=== PATIENT | female | born 1990 | race African-American/Black ===

== ENCOUNTER 2018-08-17 13:48 | Emergency (ER) | payer OTHER ==
--- NOTE | 2018-08-17 15:30 | ER ---
Nurse's Notes [facility] Name: Edwige Patrick Age: 28 yrs Sex: Female : 1990 Arrival Date: 08/17/2018 Time: 13:52 Bed Treatment Private MD: Diagnosis: Acute upper respiratory infection, unspecified Presentation: 08/17 13:53 Presenting complaint: Patient states: sore throat, cough, brown sputum for 3 days. sv Transition of care: patient was not received from another setting of care. Onset of symptoms was August 14, 2018. Care prior to arrival: None. 13:53 Method Of Arrival: Ambulatory sv 13:53 Acuity: CLIFFORD 3 sv 15:02 Risk Assessment: Do you want to hurt yourself or someone else? Patient reports no rv desire to harm self or others. Initial Sepsis Screen: Does the patient meet any 2 criteria? No. Patient's initial sepsis screen is negative. Does the patient have a suspected source of infection? No. Patient's initial sepsis screen is negative. Triage Assessment: 13:53 General: Appears in no apparent distress. uncomfortable, obese, Behavior is calm, sv cooperative. Pain: Complains of pain in throat Pain currently is 8 out of 10 on a pain scale. EENT: Oral mucosa is moist. Throat is clear is reddened. Respiratory: Respiratory effort is even, unlabored, Respiratory pattern is regular, symmetrical. Historical: - Allergies: 13:55 No Known Allergies; sv - Home Meds: 13:55 None [Active]; sv - PMHx: 13:55 Epilepsy; sv - PSHx: 13:55 ; sv - Immunization history:: Flu vaccine is not up to date. - Social history:: Smoking status: Patient/guardian denies using tobacco. - Ebola Screening: : No symptoms or risks identified at this time. Screenin:02 Abuse screen: Denies threats or abuse. Denies injuries from another. Nutritional rv screening: No deficits noted. Tuberculosis screening: No symptoms or risk factors identified. Fall Risk None identified. Assessment: 15:00 General: Appears in no apparent distress. comfortable, Behavior is calm, cooperative. rv Pain: Complains of pain in THROAT. Neuro: Level of Consciousness is awake, alert, obeys commands, Oriented to person, place, time, situation. Cardiovascular: Capillary refill < 3 seconds. Respiratory: Airway is patent Breath sounds are clear bilaterally. Respiratory: Respiratory effort is even. GI: No signs and/or symptoms were reported involving the gastrointestinal system. : No signs and/or symptoms were reported regarding the genitourinary system. EENT: Throat is reddened. Derm: Skin is intact. Musculoskeletal: No signs and/or symptoms reported regarding the musculoskeletal system. Vital Signs: 13:55 BP 121 / 93; Pulse 89; Resp 18; Temp 98.9; Pulse Ox 100% ; Weight 83.91 kg; Height 5 sv ft. 0 in. (152.40 cm); Pain 8/10; 13:55 Body Mass Index 36.13 (83.91 kg, 152.40 cm) sv ED Course: 13:52 Patient arrived in ED. mr 13:54 Triage completed. sv 13:55 Arm band placed on. sv 15:02 Patient has correct armband on for positive identification. Call light in reach. NIBP rv on. 15:10 Cary Gusman FNP-C is PHCP. snw 15:10 Wilmer Art MD is Attending Physician. snw 15:36 No provider procedures requiring assistance completed. Patient did not have IV access rv during this emergency room visit. Administered Medications: No medications were administered Outcome: 15:29 Discharge ordered by . snw 15:36 Discharged to home ambulatory. rv 15:36 Condition: good 15:36 Discharge instructions given to patient, Instructed on discharge instructions, follow up and referral plans. medication usage, Demonstrated understanding of instructions, follow-up care, medications, Prescriptions given X 1. 15:36 Patient left the ED. rv Signatures: Breana Durant RN RN Cary Gusman FNP-C FNP-Pamela Ina Owen Singh Toure RN RN rv
--- NOTE | 2018-08-17 15:30 | EDPHYS ---
Physician Documentation [facility] Name: Edwige Patrick Age: 28 yrs Sex: Female : 1990 Arrival Date: 08/17/2018 Time: 13:52 Bed Treatment Private MD: ED Physician Wilmer Art HPI: 08/17 15:30 This 28 yrs old Black Female presents to ER via Ambulatory with complaints of Sore snw Throat, Cough. 15:30 The patient presents with sore throat. The patient describes throat pain as raw, snw scratchy. Onset: The symptoms/episode began/occurred suddenly, 3 day(s) ago, and became persistent. Severity of symptoms: At their worst the symptoms were moderate. Associated signs and symptoms: The patient has no apparent associated signs or symptoms. It is unknown whether or not the patient has had similar symptoms in the past. It is unknown whether or not the patient has recently seen a physician. Historical: - Allergies: 13:55 No Known Allergies; sv - Home Meds: 13:55 None [Active]; sv - PMHx: 13:55 Epilepsy; sv - PSHx: 13:55 ; sv - Immunization history:: Flu vaccine is not up to date. - Social history:: Smoking status: Patient/guardian denies using tobacco. - Ebola Screening: : No symptoms or risks identified at this time. ROS: 15:34 Constitutional: Negative for fever, chills, and weight loss, Eyes: Negative for injury, snw pain, redness, and discharge, ENT: Negative for injury and discharge, +sore throat Neck: Negative for injury, pain, and swelling, Cardiovascular: Negative for chest pain, palpitations, and edema, Abdomen/GI: Negative for abdominal pain, nausea, vomiting, diarrhea, and constipation, Back: Negative for injury and pain, : Negative for injury, bleeding, discharge, and swelling, MS/Extremity: Negative for injury and deformity, Skin: Negative for injury, rash, and discoloration, Neuro: Negative for headache, weakness, numbness, tingling, and seizure. 15:34 Respiratory: Positive for cough, with rust-colored sputum. Exam: 15:29 Constitutional: This is a well developed, well nourished patient who is awake, alert, snw and in no acute distress. Head/Face: Normocephalic, atraumatic. Eyes: Pupils equal round and reactive to light, extra-ocular motions intact. Lids and lashes normal. Conjunctiva and sclera are non-icteric and not injected. Cornea within normal limits. Periorbital areas with no swelling, redness, or edema. Neck: Trachea midline, no thyromegaly or masses palpated, and no cervical lymphadenopathy. Supple, full range of motion without nuchal rigidity, or vertebral point tenderness. No Meningismus. Chest/axilla: Normal chest wall appearance and motion. Nontender with no deformity. No lesions are appreciated. Cardiovascular: Regular rate and rhythm with a normal S1 and S2. No gallops, murmurs, or rubs. Normal PMI, no JVD. No pulse deficits. Abdomen/GI: Soft, non-tender, with normal bowel sounds. No distension or tympany. No guarding or rebound. No evidence of tenderness throughout. Back: No spinal tenderness. No costovertebral tenderness. Full range of motion. Skin: Warm, dry with normal turgor. Normal color with no rashes, no lesions, and no evidence of cellulitis. MS/ Extremity: Pulses equal, no cyanosis. Neurovascular intact. Full, normal range of motion. Neuro: Awake and alert, GCS 15, oriented to person, place, time, and situation. Cranial nerves II-XII grossly intact. Motor strength 5/5 in all extremities. Sensory grossly intact. Cerebellar exam normal. Normal gait. Psych: Awake, alert, with orientation to person, place and time. Behavior, mood, and affect are within normal limits. 15:29 ENT: External ear(s): are unremarkable, Ear canal(s): are normal, TM's: are normal, Nose: is normal, Mouth: is normal, Posterior pharynx: erythema, that is moderate, Voice: is normal. 15:29 Respiratory: the patient does not display signs of respiratory distress, Respirations: normal, Breath sounds: are clear throughout, + dry cough. Vital Signs: 13:55 BP 121 / 93; Pulse 89; Resp 18; Temp 98.9; Pulse Ox 100% ; Weight 83.91 kg; Height 5 sv ft. 0 in. (152.40 cm); Pain 8/10; 13:55 Body Mass Index 36.13 (83.91 kg, 152.40 cm) sv MDM: 15:10 Patient medically screened. snw 15:30 Data reviewed: vital signs, nurses notes. Data interpreted: Pulse oximetry: on room air snw is 100 %. Interpretation: normal. Counseling: I had a detailed discussion with the patient and/or guardian regarding: the historical points, exam findings, and any diagnostic results supporting the discharge/admit diagnosis, the presence of at least one elevated blood pressure reading (>120/80) during this emergency department visit, the need for outpatient follow up, to return to the emergency department if symptoms worsen or persist or if there are any questions or concerns that arise at home. Special discussion: Based on the history and exam findings, there is no indication for further emergent testing or inpatient evaluation. I discussed with the patient/guardian the need to see the primary care provider for further evaluation of the symptoms. 08/17 13:55 Order name: Strep; Complete Time: 15:00 sv 08/17 14:11 Order name: Throat Culture EDMS Administered Medications: No medications were administered Disposition: 08/17/18 15:29 Discharged to Home. Impression: Acute upper respiratory infection, unspecified. - Condition is Stable. - Discharge Instructions: Hypertension, Viral Respiratory Infection, Cool Mist Vaporizer, Cough, Adult, Rehydration, Adult. - Prescriptions for Prednisone 20 mg Oral Tablet - take 2 tablet by ORAL route once daily for 5 days; 10 tablet. - Medication Reconciliation Form, Thank You Letter, Antibiotic Education, Prescription Opioid Use form. - Follow up: Private Physician; When: 2 - 3 days; Reason: Recheck today's complaints, Continuance of care, Re-evaluation by your physician. Follow up: Emergency Department; When: As needed; Reason: Worsening of condition. Addendum: 08/19/2018 19:08 Co-signature as Attending Physician, Wilmer Art MD. g s Signatures: Dispatcher [employer] Breana Conway RN RN Cary Fournier, FORM SETTER STEEL FORMS-C FORM SETTER STEEL FORMS-Reginaldw Wilmer Art MD MD gs Vicente, Ronaldo, RN RN rv Corrections: (The following items were deleted from the chart) 08/17 15:36 15:29 08/17/2018 15:29 Discharged to Home. Impression: Acute upper respiratory rv infection, unspecified. Condition is Stable. Forms are Medication Reconciliation Form, Thank You Letter, Antibiotic Education, Prescription Opioid Use. Follow up: Private Physician; When: 2 - 3 days; Reason: Recheck today's complaints, Continuance of care, Re-evaluation by your physician. Follow up: Emergency Department; When: As needed; Reason: Worsening of condition. miguel
== END 2018-08-17 15:36 | disposition home or self-care (01) ==
LOC: ER 13:48
DX: J06.9 Acute upper respiratory infection, unspecified (principal)
CPT/HCPCS: 87070; 87081; 99282

== ENCOUNTER 2018-10-09 13:48 | Emergency (ER) | payer OTHER ==
--- NOTE | 2018-10-09 14:41 | ER ---
Nurse's Notes [facility] Name: Edwige Patrick Age: 28 yrs Sex: Female : 1990 Arrival Date: 10/09/2018 Time: 13:52 Bed 14 Private MD: Diagnosis: Cutaneous abscess of groin Presentation: 10/09 13:52 Presenting complaint: Patient states: Abscess noted to inner aspect of right thigh, sg denies N/V/D/Fever, denies drainage at this time. Transition of care: patient was not received from another setting of care. Onset of symptoms was October 09, 2018. Risk Assessment: Do you want to hurt yourself or someone else? Patient reports no desire to harm self or others. Initial Sepsis Screen: Does the patient meet any 2 criteria? No. Patient's initial sepsis screen is negative. Does the patient have a suspected source of infection? No. Patient's initial sepsis screen is negative. Care prior to arrival: None. 13:52 Method Of Arrival: Ambulatory sg 13:56 Acuity: CLIFFORD 4 sg Triage Assessment: 14:27 General: Appears in no apparent distress. comfortable, Behavior is calm, cooperative. 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 - Social history:: Smoking status: unknown. - Ebola Screening: : Patient negative for fever greater than or equal to 101.5 degrees Fahrenheit, and additional compatible Ebola Virus Disease symptoms Patient denies exposure to infectious person Patient denies travel to an Ebola-affected area in the 21 days before illness onset No symptoms or risks identified at this time. Screenin:27 Abuse screen: Denies threats or abuse. Nutritional screening: No deficits noted. rb1 Tuberculosis screening: No symptoms or risk factors identified. Fall Risk None identified. Assessment: 14:27 General: Appears in no apparent distress. comfortable, Behavior is calm, cooperative, rb1 Denies fever. Pain: Complains of pain in groin Pain currently is 7 out of 10 on a pain scale. Neuro: Level of Consciousness is awake, alert, obeys commands, Oriented to person, place, time, situation. Cardiovascular: Capillary refill < 3 seconds is brisk in bilateral fingers. Respiratory: Airway is patent Respiratory effort is even, unlabored, Respiratory pattern is regular, symmetrical. GI: No signs and/or symptoms were reported involving the gastrointestinal system. : No signs and/or symptoms were reported regarding the genitourinary system. Derm: Skin is dry, Skin is normal, Skin temperature is warm Abscess located on groin. Vital Signs: 14:00 BP 133 / 93; Pulse 99; Resp 17; Temp 98.3; Pulse Ox 100% ; Weight 95.25 kg; Height 5 hb ft. 0 in. (152.40 cm); Pain 10/10; 15:00 BP 128 / 90; Pulse 80; Resp 18; Pulse Ox 98% on R/A; rb1 14:00 Body Mass Index 41.01 (95.25 kg, 152.40 cm) hb ED Course: 13:52 Patient arrived in ED. as 13:55 Arm band placed on. sg 13:56 Triage completed. sg 14:22 [facility]. kb 14:22 Harley Bauer MD is Attending Physician. kb 14:27 Patient has correct armband on for positive identification. Placed in gown. Bed in low rb1 position. Call light in reach. Side rails up X 1. Pulse ox on. NIBP on. Warm blanket given. 14:41 Mónica Collins, RN is Primary Nurse. rb1 15:02 No provider procedures requiring assistance completed. Patient did not have IV access rb1 during this emergency room visit. Administered Medications: 14:45 Drug: Bactrim (160 mg-800 mg (DS) 1 tablet Route: PO; rb1 Outcome: 14:41 Discharge ordered by . kb 15:02 Patient left the ED. rb1 15:02 Discharged to home ambulatory. rb1 15:02 Condition: stable 15:02 Discharge instructions given to patient, Instructed on discharge instructions, follow up and referral plans. medication usage, Demonstrated understanding of instructions, follow-up care, medications, Prescriptions given X 1. Signatures: Maren Webb FNP-C FNP-Ckb Gay, Steven, RN RN Rose Wiley as Mónica Collins, JESSICA RN [facility] Linda Bass RN RN Corrections: (The following items were deleted from the chart) 19:41 15:00 BP 131 / 89; Pulse 99bpm; Resp 18bpm; Pulse Ox 99% RA; rb1 rb1
--- NOTE | 2018-10-09 14:41 | EDPHYS ---
Physician Documentation [facility] Name: Edwige Patrick Age: 28 yrs Sex: Female : 1990 Arrival Date: 10/09/2018 Time: 13:52 Bed 14 Private MD: ED Physician Harley Bauer HPI: 10/09 14:38 This 28 yrs old Black Female presents to ER via Ambulatory with complaints of Boil. kb 14:40 The patient presents with an abscess of the mons pubis. Description: swollen. Onset: kb The symptoms/episode began/occurred 2 day(s) ago. Possible cause(s): unknown. Associated signs and symptoms: Pertinent positives: swelling, Pertinent negatives: discharge, drainage, erythema, foreign body sensation, fever, headache, nausea, shortness of breath, vomiting. Modifying factors: the symptoms are alleviated by nothing, the symptoms are aggravated by pressure, touching. Severity of symptoms: At their worst the symptoms were mild, in the emergency department the symptoms are unchanged. The patient has not experienced similar symptoms in the past. The patient has not recently seen a physician. 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 - Social history:: Smoking status: unknown. - Ebola Screening: : Patient negative for fever greater than or equal to 101.5 degrees Fahrenheit, and additional compatible Ebola Virus Disease symptoms Patient denies exposure to infectious person Patient denies travel to an Ebola-affected area in the 21 days before illness onset No symptoms or risks identified at this time. ROS: 14:37 Constitutional: Negative for fever, chills, and weight loss, Cardiovascular: Negative kb for chest pain, palpitations, and edema, Respiratory: Negative for shortness of breath, cough, wheezing, and pleuritic chest pain, Abdomen/GI: Negative for abdominal pain, nausea, vomiting, diarrhea, and constipation, MS/Extremity: Negative for injury and deformity, Neuro: Negative for headache, weakness, numbness, tingling, and seizure. 14:37 Skin: Positive for abscess, of the mons pubis. Exam: 14:37 Constitutional: This is a well developed, well nourished patient who is awake, alert, kb and in no acute distress. Head/Face: Normocephalic, atraumatic. Chest/axilla: Normal chest wall appearance and motion. Nontender with no deformity. No lesions are appreciated. Cardiovascular: Regular rate and rhythm with a normal S1 and S2. No gallops, murmurs, or rubs. Normal PMI, no JVD. No pulse deficits. Respiratory: Lungs have equal breath sounds bilaterally, clear to auscultation and percussion. No rales, rhonchi or wheezes noted. No increased work of breathing, no retractions or nasal flaring. Abdomen/GI: Soft, non-tender, with normal bowel sounds. No distension or tympany. No guarding or rebound. No evidence of tenderness throughout. MS/ Extremity: Pulses equal, no cyanosis. Neurovascular intact. Full, normal range of motion. Neuro: Awake and alert, GCS 15, oriented to person, place, time, and situation. Cranial nerves II-XII grossly intact. Motor strength 5/5 in all extremities. Sensory grossly intact. Cerebellar exam normal. Normal gait. 14:37 Skin: abscess, that is small, of the mons pubis, with induration. Vital Signs: 14:00 BP 133 / 93; Pulse 99; Resp 17; Temp 98.3; Pulse Ox 100% ; Weight 95.25 kg; Height 5 hb ft. 0 in. (152.40 cm); Pain 10/10; 15:00 BP 128 / 90; Pulse 80; Resp 18; Pulse Ox 98% on R/A; rb1 14:00 Body Mass Index 41.01 (95.25 kg, 152.40 cm) hb MDM: 14:22 Patient medically screened. kb 14:37 Data reviewed: vital signs, nurses notes. Data interpreted: Pulse oximetry: on room air kb is 100 %. Interpretation: normal. Counseling: I had a detailed discussion with the patient and/or guardian regarding: the historical points, exam findings, and any diagnostic results supporting the discharge/admit diagnosis, the need for outpatient follow up, a family practitioner, to return to the emergency department if symptoms worsen or persist or if there are any questions or concerns that arise at home. Administered Medications: 14:45 Drug: Bactrim (160 mg-800 mg (DS) 1 tablet Route: PO; rb1 Disposition: 15:15 Co-signature as Attending Physician, Harley Bauer MD. rn Disposition: 10/09/18 14:41 Discharged to Home. Impression: Cutaneous abscess of groin. - Condition is Stable. - Discharge Instructions: Skin Abscess, [id number]. - Prescriptions for Bactrim DS 800- 160 mg Oral Tablet - take 1 tablet by ORAL route every 12 hours for 10 days; 20 tablet. - Medication Reconciliation Form, Thank You Letter, Antibiotic Education, Prescription Opioid Use, Work release form form. - Follow up: Emergency Department; When: As needed; Reason: Worsening of condition. Follow up: Private Physician; When: 2 - 3 days; Reason: Recheck today's complaints, Continuance of care, Re-evaluation by your physician. Signatures: Maren Webb, RIVETER-C RIVETER-Sathya Del Rosario RN RN sg Harley Bauer MD MD rn Barber, Rebecca, RN RN rb1 Linda Bass RN RN Corrections: (The following items were deleted from the chart) 15:02 14:41 10/09/2018 14:41 Discharged to Home. Impression: Cutaneous abscess of groin. rb1 Condition is Stable. Forms are Medication Reconciliation Form, Thank You Letter, Antibiotic Education, Prescription Opioid Use. Follow up: Emergency Department; When: As needed; Reason: Worsening of condition. Follow up: Private Physician; When: 2 - 3 days; Reason: Recheck today's complaints, Continuance of care, Re-evaluation by your physician. kb
[2018-10-09] MEDS ORDERED: SMZ./TMP. 800/160 MG TABLET ONE (14:56)
== END 2018-10-09 15:02 | disposition home or self-care (01) ==
LOC: ER 13:48
DX: L02.214 Cutaneous abscess of groin (principal); G40.909 Epilepsy, unspecified, not intractable, without status epilepticus; Z88.5 Allergy status to narcotic agent
CPT/HCPCS: 99283

== ENCOUNTER 2019-11-19 18:36 | Emergency (ER) | payer OTHER ==
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
[2019-11-19] MEDS ORDERED: PROMETHAZINE INJ 25 MG/ML AMP ONE (19:36)
[2019-11-19] MEDS ORDERED: NA CHLORIDE 0.9% 1,000 ML ONE (19:36)
[2019-11-19 19:49] LABS: Urine Blood NEGATIVE (NEG); Urine Glucose NEGATIVE (NEG); Urine Protein NEGATIVE (NEG)
[2019-11-19 20:08] LABS: Absolute Lymphocytes (CBC) 2.5 K/uL (0.7-4.9); Basophils % 0.3 % (0-1.3); Hematocrit 36.8 % (36.0-45.0); Lymphocytes % 20.8 % (15.3-44.8); MPV 8.1 fL (7.6-11.3); RBC Red Blood Cell Count 4.08 M/uL (3.86-4.86)
[2019-11-19 20:42] LABS: BUN Blood Urea Nitrogen 9 mg/dL (7-18); Bicarbonate 26 mmol/L (21-32); Glucose Level 82 mg/dL (74-106); Potassium 3.8 mmol/L (3.5-5.1); Sodium Level 137 mmol/L (136-145)
[2019-11-19 21:14] LABS: HCG, Quantitative 27572 mIU/mL (1-3)
--- NOTE | 2019-11-19 21:28 | ER ---
Nurse's Notes [facility] Name: Edwige Patrick Age: 29 yrs Sex: Female : 1990 Arrival Date: 11/19/2019 Time: 18:37 Bed 30 Private MD: Diagnosis: Less than 8 weeks gestation of ;Vomiting of , unspecified Presentation: 11/18 18:51 Chief complaint: Patient states: i think i am dehydrated, i am , and i cant tw2 keep anything down, my mouth feels dry and i am spotting a little bit, i am so nauseous and my lips are dry and the water wont stay with me. Initial Sepsis Screen: Does the patient meet any 2 criteria? No. Patient's initial sepsis screen is negative. Does the patient have a suspected source of infection? No. Patient's initial sepsis screen is negative. Risk Assessment: Do you want to hurt yourself or someone else? Patient reports no desire to harm self or others. 18:51 Acuity: [place] 3 tw2 19:00 Coronavirus screen: The patient has NOT traveled to a country currently being monitored fu by the [facility] within the last 14 days. Ebola Screen: No symptoms or risks identified at this time. 19:00 Method Of Arrival: Ambulatory fu Triage Assessment: 18:54 General: Appears in no apparent distress. obese, Behavior is calm, cooperative, tw2 appropriate for age. Pain: Complains of pain in pelvis. GI: Reports lower abdominal pain, upper abdominal pain, intolerance of fluids, intolerance of food, nausea. Derm: Reports "dryness in my mouth and lips". CHIEF OF POLICE: 18:52 LMP 11/02/2019 tw2 19:59 2, 0, Living 1, LMP 09/29/2019 kb Historical: - Allergies: 18:56 No Known Allergies; tw2 - Home Meds: 18:56 Vitamin Oral tab 1 tab once daily [Active]; tw2 - PMHx: 18:56 epilepsy; tw2 - PSHx: 18:56 ; tw2 - Immunization history:: Adult Immunizations. - Social history:: Smoking status: . Screenin:28 Abuse screen: Denies threats or abuse. Nutritional screening: No deficits noted. fu Tuberculosis screening: No symptoms or risk factors identified. Fall Risk None identified. Assessment: 19:06 General: Appears in no apparent distress. comfortable, Behavior is calm, cooperative, fu appropriate for age, Reports abdominal pain, nausea, vomiting for 3 days worst today. LMP 10/02/19. Pain: Complains of pain in pelvis, abdomen Pain does not radiate. Pain currently is 4 out of 10 on a pain scale. Quality of pain is described as aching, Pain began 2-3 days ago. Neuro: Level of Consciousness is awake, alert, obeys commands, Oriented to person, place, time, situation, Accounts Payable Administrator are equal bilaterally Moves all extremities. Gait is steady, Speech is normal, Facial symmetry appears normal. Cardiovascular: Reports nausea, Denies chest pain, lightheadedness, shortness of breath, syncope. Respiratory: Airway is patent Respiratory effort is even, unlabored, Respiratory pattern is regular, Breath sounds are clear bilaterally. GI: Abdomen is obese, Bowel sounds present X 4 quads. Abd is soft. : Reports vaginal spotting. EENT: No signs and/or symptoms were reported regarding the EENT system. Derm: No signs and/or symptoms reported regarding the dermatologic system. 20:26 Reassessment: Provider states okay to PO challenge; Patient given crackers, peanut lp1 butter and water; States being hungry at this time. 21:00 Reassessment: Patient and/or family updated on plan of care and expected duration. Pain fu level reassessed. Patient is alert, oriented x 3, equal unlabored respirations, skin warm/dry/pink. Patient states feeling better. Patient states symptoms have improved. Vital Signs: 18:53 BP 112 / 74; Pulse 83; Resp 17; Temp 98.1(TE); Pulse Ox 98% on R/A; Weight 122.47 kg tw2 (R); Height 5 ft. 0 in. (152.40 cm) (R); Pain 10/10; 19:03 BP 125 / 78; Pulse 73; Resp 18; Pulse Ox 98% ; Pain 0/10; fu 21:00 BP 108 / 77; Pulse 71; Resp 19; Pulse Ox 100% on R/A; Pain 0/10; fu 18:53 Body Mass Index 52.73 (122.47 kg, 152.40 cm) tw2 ED Course: 18:37 Patient arrived in ED. ag5 18:52 Triage completed. tw2 18:54 Arm band placed on. tw2 19:04 [facility] kb 19:04 Harley Bauer MD is Attending Physician. kb 19:30 Tim Villanueva, RN is Primary Nurse. fu 19:35 Inserted saline lock: 20 gauge in left antecubital area, using aseptic technique. Blood fu collected. 21:18 Ultrasound completed. Patient tolerated well. sg3 21:19 US Transvaginal Ob In Process Unspecified. EDMS 21:25 IV discontinued, bleeding controlled, Pressure dressing applied. fu 21:29 Patient has correct armband on for positive identification. Bed in low position. Call fu light in reach. Side rails up X 1. 21:29 No provider procedures requiring assistance completed. fu Administered Medications: 19:40 Drug: NS 0.9% 1000 ml Route: IV; Rate: 1000 ml; Site: left antecubital; fu 21:30 Follow up: Response: No adverse reaction fu 19:52 Drug: Phenergan 6.25 mg Route: IVP; Site: left antecubital; fu 20:52 Follow up: Response: Nausea is decreased fu Outcome: 21:27 Discharge ordered by . kb 21:30 Discharged to home ambulatory. fu 21:30 Condition: stable 21:30 Discharge instructions given to patient, Instructed on discharge instructions, follow up and referral plans. Demonstrated understanding of instructions, follow-up care, Prescriptions given X 1. 21:39 Patient left the ED. fu Signatures: Dispatcher [employer] EDMS Maren Webb FNP-C FNP-Ckb Pena, Laura, RN RN 1 Mackenzie Mahoney RN RN 2 Tim Villanueva, RN JESSICA Ricci Mcnealah sg3 Elis Andrwes ag
--- NOTE | 2019-11-19 21:28 | EDPHYS ---
Physician Documentation [facility] Name: Edwige Patrick Age: 29 yrs Sex: Female : 1990 Arrival Date: 11/19/2019 Time: 18:37 Bed 30 Private MD: ED Physician Harley Bauer HPI: 11/18 19:58 This 29 yrs old Black Female presents to ER via Unassigned with complaints of Vomiting, kb Abdominal Pain, Vaginal Bleeding, + Preg <12wks. 19:59 The patient presents to the emergency department with abdominal pain, of the suprapubic kb area, described as crampy, nausea and vomiting, that started 3 day(s) ago. course: care: at a clinic, Leakage of Fluid: none appreciated, Ultrasound: the patient has not had an ultrasound, Risk/complications: no obvious risks or complications are appreciated. Previous pregnancies: in previous pregnancies patient has had. Associated signs and symptoms: Pertinent positives: abdominal pain, nausea, vomiting. The patient has not experienced similar symptoms in the past. The patient has not recently seen a physician. 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 - Social history:: Smoking status: . ROS: 19:57 Constitutional: Negative for fever, chills, and weight loss, ENT: Negative for injury, kb pain, and discharge, Neck: Negative for injury, pain, and swelling, Cardiovascular: Negative for chest pain, palpitations, and edema, Respiratory: Negative for shortness of breath, cough, wheezing, and pleuritic chest pain, Back: Negative for injury and pain, MS/Extremity: Negative for injury and deformity, Skin: Negative for injury, rash, and discoloration, Neuro: Negative for headache, weakness, numbness, tingling, and seizure. 19:57 Abdomen/GI: Positive for nausea and vomiting, abdominal cramps. Exam: 19:57 Constitutional: This is a well developed, well nourished patient who is awake, alert, kb and in no acute distress. Head/Face: Normocephalic, atraumatic. ENT: Nares patent. No nasal discharge, no septal abnormalities noted. Tympanic membranes are normal and external auditory canals are clear. Oropharynx with no redness, swelling, or masses, exudates, or evidence of obstruction, uvula midline. Mucous membranes moist. Neck: Trachea midline, no thyromegaly or masses palpated, and no cervical lymphadenopathy. Supple, full range of motion without nuchal rigidity, or vertebral point tenderness. No Meningismus. Chest/axilla: Normal chest wall appearance and motion. Nontender with no deformity. No lesions are appreciated. Cardiovascular: Regular rate and rhythm with a normal S1 and S2. No gallops, murmurs, or rubs. Normal PMI, no JVD. No pulse deficits. Respiratory: Lungs have equal breath sounds bilaterally, clear to auscultation and percussion. No rales, rhonchi or wheezes noted. No increased work of breathing, no retractions or nasal flaring. Skin: Warm, dry with normal turgor. Normal color with no rashes, no lesions, and no evidence of cellulitis. MS/ Extremity: Pulses equal, no cyanosis. Neurovascular intact. Full, normal range of motion. Neuro: Awake and alert, GCS 15, oriented to person, place, time, and situation. Cranial nerves II-XII grossly intact. Motor strength 5/5 in all extremities. Sensory grossly intact. Cerebellar exam normal. Normal gait. 19:57 Abdomen/GI: Inspection: obese Bowel sounds: normal, Palpation: abdomen is soft and non-tender, in all quadrants. Vital Signs: 18:53 BP 112 / 74; Pulse 83; Resp 17; Temp 98.1(TE); Pulse Ox 98% on R/A; Weight 122.47 kg tw2 (R); Height 5 ft. 0 in. (152.40 cm) (R); Pain 10/10; 19:03 BP 125 / 78; Pulse 73; Resp 18; Pulse Ox 98% ; Pain 0/10; fu 21:00 BP 108 / 77; Pulse 71; Resp 19; Pulse Ox 100% on R/A; Pain 0/10; fu 18:53 Body Mass Index 52.73 (122.47 kg, 152.40 cm) tw2 MDM: 19:04 Patient medically screened. kb 19:57 Data reviewed: vital signs, nurses notes. Data interpreted: Pulse oximetry: on room air kb is 98 %. Interpretation: normal. 21:26 Counseling: I had a detailed discussion with the patient and/or guardian regarding: the kb historical points, exam findings, and any diagnostic results supporting the discharge/admit diagnosis, lab results, radiology results, the need for outpatient follow up, an OB/Gyne specialist, to return to the emergency department if symptoms worsen or persist or if there are any questions or concerns that arise at home. 11/18 19:05 Order name: Quantitative Hcg; Complete Time: 21:24 kb 11/18 19:05 Order name: Abo/rh Typing; Complete Time: 20:31 kb 11/18 19:05 Order name: Basic Metabolic Panel; Complete Time: 21:24 kb 11/18 19:05 Order name: CBC with Diff; Complete Time: 20:15 kb 11/18 19:24 Order name: Urine Dipstick--Ancillary (enter results); Complete Time: 19:53 ar5 11/18 19:05 Order name: Urine Test (obtain specimen); Complete Time: 19:21 kb 11/18 19:05 Order name: IV Saline Lock; Complete Time: 20:35 kb 11/18 19:05 Order name: Labs collected and sent; Complete Time: 20:35 kb 11/18 19:24 Order name: Urine --Ancillary (enter results); Complete Time: 19:53 ar5 11/18 19:57 Order name: US Transvaginal Ob kb 11/18 21:08 Order name: ABO/RH no charge; Complete Time: 21:09 EDMS 11/18 19:05 Order name: NPO; Complete Time: 20:35 kb 11/18 19:05 Order name: Urine Dipstick-Ancillary (obtain specimen); Complete Time: 19:21 kb Administered Medications: 19:40 Drug: NS 0.9% 1000 ml Route: IV; Rate: 1000 ml; Site: left antecubital; fu 21:30 Follow up: Response: No adverse reaction fu 19:52 Drug: Phenergan 6.25 mg Route: IVP; Site: left antecubital; fu 20:52 Follow up: Response: Nausea is decreased fu Disposition: 11/19 10:09 Co-signature as Attending Physician, Harley Bauer MD. rn Disposition: 11/19/19 21:27 Discharged to Home. Impression: Less than 8 weeks gestation of , Vomiting of , unspecified. - Condition is Stable. - Discharge Instructions: Morning Sickness, [id number], First Trimester of , [id number]. - Prescriptions for Diclegis 10- 10 mg Oral tablet,delayed release (DR/EC) - take 1 tablet by ORAL route once daily As needed; 10 tablet. - Medication Reconciliation Form, Thank You Letter, Antibiotic Education, Prescription Opioid Use form. - Follow up: Emergency Department; When: As needed; Reason: Worsening of condition. Follow up: Private Physician; When: 2 - 3 days; Reason: Recheck today's complaints, Continuance of care, Re-evaluation by your physician. Signatures: Dispatcher [employer] EDMS Maren Webb, LANDSCAPE NURSERYMAN-C LANDSCAPE NURSERYMAN-Ckb Harley Bauer MD MD rn Wise, Tara, RN RN [facility] Tim Villanueva RN RN Corrections: (The following items were deleted from the chart) 11/18 21:39 21:27 11/19/2019 21:27 Discharged to Home. Impression: Less than 8 weeks gestation of fu ; Vomiting of , unspecified. Condition is Stable. Forms are Medication Reconciliation Form, Thank You Letter, Antibiotic Education, Prescription Opioid Use. Follow up: Emergency Department; When: As needed; Reason: Worsening of condition. Follow up: Private Physician; When: 2 - 3 days; Reason: Recheck today's complaints, Continuance of care, Re-evaluation by your physician. kb
[2019-11-19 21:45] VITALS: BP 112/74; TEMP 98.1; O2SAT 98
--- NOTE | 2019-11-20 12:43 | RAD REPORT ---
EXAM DESCRIPTION: US - Transvaginal OB - 11/19/2019 9:18 pm CLINICAL HISTORY: ABD CRAMPING, COMPARISON: No comparisons FINDINGS: A single gestational sac is seen within the uterus. The shape of the sac is within normal limits for gestational age. Within the sac is a single pole with crown-rump length of 6 mm, cor relating to estimated gestational age of 6 weeks 3 days. Estimated date of delivery is 07/11/2020. Heart rate is 100 BPM. The placenta is not yet developed due to early gestational age. The maternal adnexa are within normal limits. Normal blood flow seen to the right ovary. The left ova ry was obscured by bowel gas. IMPRESSION: Single live early intrauterine gestation with estimated gestational age of 6 weeks 3 day s, ZULY 07/11/2020.
== END 2019-11-19 21:39 | disposition home or self-care (01) ==
LOC: ER 18:36
DX: O21.9 Vomiting of pregnancy, unspecified (principal); Z3A.01 Less than 8 weeks gestation of pregnancy
CPT/HCPCS: 85025; 80048; 36415; 86900; 81025; 86901; 84702; 81003; 76817; 96374; 99284; J2550; J7030